=== PATIENT | female | born 1975 ===

== ENCOUNTER 2024-03-17 11:00 | Day surgery (SDC) | payer OTHER ==
[~2024-03-17 11:00] MED LIST: PROAIR RESPICL90 MCG IH
[2024-03-17] MEDS ORDERED: CEFAZOLIN SODIUM 1,000 MG VIAL ONE (13:01)
[2024-03-17] MEDS ORDERED: POVIDONE-IODINE 118 ML BOTT TOP ONE (13:30)
[2024-03-17] MEDS ORDERED: CHLORHEXIDINE GLUCONATE 120 ML BOTTLE TOP ONE (13:30)
[2024-03-17] MEDS ORDERED: ZITHROMAX500 MG PO (14:37)
[2024-03-17] MEDS ORDERED: IBU400 MG PO (14:37)
[2024-03-17] MEDS ORDERED: KETOROLAC TROMETHAMINE 60 MG VIAL IM STA (14:38)
[2024-03-17] MEDS ORDERED: RINGERS SOLUTION,LACTATED 1,000 ML IV SCH (14:45)
[2024-03-17] MEDS ORDERED: KETOROLAC TROMETHAMINE 60 MG VIAL IM ONE (15:46)
== END 2024-03-17 19:35 | disposition home or self-care (01) ==
LOC: CIR.AMB 11:00
PROVIDERS: ATTEND Obstetrics & Gynecology
DX: N84.0 Polyp of corpus uteri (principal); J45.909 Unspecified asthma, uncomplicated